=== PATIENT | female | born 1955 | race Caucasian/White ===

== ENCOUNTER 2024-12-27 10:10 | Outpatient (AMB) | payer BC, SELFPAY ==
--- OUTSIDE RECORDS SUMMARY | 2024-12-27 11:25 | XMS_ITS | Clinical Summary ---
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 Phone Unavailable Primary Care Provider Unavailabl e Social History Tobacco Use Types Packs/Day Years Used Date Smoking Tobacco: Never Assessed Comments Unknown Sex and Gender Information Value Date Recorded Sex Assigned at Not on file Legal Sex Female 10:49 AM EDT Gender Identity Not on file Sexual Orientation Not on file Plan of Treatment Upcoming Encounters Date Type Department Care Team (Late st Contact Info) Description 01/20/2025 12:15 PM EDT Office Visit [facility] [address] [id number] Huong Ulloa PA-C [address] [place] [id number] Health Maintenance Due Date Last Done Comments Hepatitis C Virus Screening 1955 DTaP/Tdap/Td Vaccines (1 - Tdap) 1974 Mammogram 1995 Colonoscopy 01/17/2000 Pneumococcal Vaccines 50+ (1 of 1 - PCV) 2005 Zoster (Shingles) Vaccine (1 of 2) 2005 DXA Bone Density (Females,Ag es 65 and older) 01/17/2020 COVID-19 Vaccine ( - 2023-2 5 season) 2024 Influenza Vaccine 12/09/2024 RSV Vaccine 60 years and old er and Patients (1 - 1-dose 75+ series) 2030 Hepatitis B Vaccines Aged Out No long er eligible based on patient's age to complete this topic Insurance MEDICARE PART A & B [facility]
--- OUTSIDE RECORDS SUMMARY | 2024-12-27 11:25 | XMS_ITS ---
Author Name [facility] Organization Unknown Care Team Organization Name Specialty Phone Email Start Date End Chiki [facility] 11/23/2024 [facility] 10/11/2022 [facility]
== END 2024-12-27 10:46 | disposition home or self-care (01) ==
LOC: HO.HMGAL 10:10
PROVIDERS: Visit Provider Registered Nurse Emergency
DX: J30.89 Other allergic rhinitis (principal)
CPT/HCPCS: 95117; 95165

== ENCOUNTER 2025-01-30 11:13 | Outpatient (AMB) | payer MEDICARE, BC, SELFPAY | END 2025-01-30 11:34 | disposition home or self-care (01) | LOC: HO.HMGAL 11:13 | PROVIDERS: Visit Provider Registered Nurse Emergency | DX: J30.89 Other allergic rhinitis (principal) | CPT/HCPCS: 95117; 95165 ==